=== PATIENT | female | born 1995 | race Two or more races ===

== ENCOUNTER 2019-05-09 09:55 | Emergency (ER) | payer SELFPAY ==
[2019-05-09 10:03] VITALS: BP 141/80
[2019-05-09] MEDS ORDERED: DIPH/PERTUSS(ACELL)/TETANUS VAC/PF 0.5 ML SYR (>=10YO) IM ONE (11:38)
--- NOTE | 2019-05-09 11:40 | ER Document Report ---
HPI - HPI Patient complains to provider of: Small enlarged lymph node on right posterior cervical chain, laceration fin Time Seen by Provider: 05/09/19 11:16 Onset: Other - This weekend Onset/Duration: Persistent Quality of pain: No pain Severity: None Pain Level: Denies Associated Symptoms: Other - Small superficial laceration to right second finger Exacerbated by: Movement Relieved by: Denies Similar symptoms previously: Yes Recently seen / treated by doctor: No - ROS ROS below otherwise negative: Yes - CONSTITUTIONAL Constitutional: DENIES: Fever, Chills - EENT EENT: REPORTS: Nasal Drainage-Purulent. DENIES: Sore Throat, Ear Pain, Nasal Drainage-Clear, Congestion, Eye problems Notes: Mild swelling and drainage to the right nare with mild lymphadenopathy on the right anterior cervical chain - CARDIOVASCULAR Cardiovascular: DENIES: Chest pain - RESPIRATORY Respiratory: DENIES: Trouble Breathing, Coughing - GASTROINTESTINAL Gastrointestinal: DENIES: Abdominal Pain, Nausea, Patient vomiting, Diarrhea, Constipation, Black / Bloody Stools - URINARY Urinary: DENIES: Dysuria, Urgency, Frequency - REPRODUCTIVE Reproductive: DENIES: :, Postmenopausal, Abnormal bleeding / discharge - MUSCULOSKELETAL Musculoskeletal: DENIES: Extremity pain, Back Pain, Neck Pain, Swelling - DERM Skin Color: Normal Skin Problems: Laceration - Superficial laceration to the right index finger Past Medical History - General Information source: Patient - Social History Smoking Status: Former Smoker Cigarette use (# per day): No Chew tobacco use (# tins/day): No Smoking Education Provided: No Frequency of alcohol use: Social Drug Abuse: None Lives with: Family Family History: None Patient has suicidal ideation: No Patient has homicidal ideation: No - Past Medical History Cardiac Medical History: Reports: None Pulmonary Medical History: Reports: None EENT Medical History: Reports: None Neurological Medical History: Reports: None Endocrine Medical History: Reports: None Renal/ Medical History: Reports: None Malignancy Medical History: Reports: None GI Medical History: Reports: None Musculoskeletal Medical History: Reports None Skin Medical History: Reports None Psychiatric Medical History: Reports: None Traumatic Medical History: Reports: None Infectious Medical History: Reports: None Surgical Hx: Negative Past Surgical History: Reports: None - Immunizations Immunizations up to date: Yes Hx Diphtheria, Pertussis, Tetanus Vaccination: Yes Vertical Provider Document - CONSTITUTIONAL Agree With Documented VS: Yes - INFECTION CONTROL TRAVEL OUTSIDE OF THE [place] IN LAST 30 DAYS: No - HEENT HEENT: Atraumatic Notes: Mild swelling and drainage to the right nasal mucosal - NECK Neck: Lymphadenopathy-Right - RESPIRATORY Respiratory: Breath Sounds Normal - CARDIOVASCULAR Cardiovascular: Regular Rate - GI/ABDOMEN Gastrointestinal: Abdomen Soft, Abdomen Non-Tender, No Organomegaly, Normal Bowel Sounds - MUSCULOSKELETAL/EXTREMETIES Musculoskeletal/Extremeties: MAEW, FROM, Tender - Right index finger - NEURO Level of Consciousness: Awake, Alert, Appropriate Motor/Sensory: No Motor Deficit, No Sensory Deficit, No Pronator Drift Deep Tendon Reflexes: 2+ - DERM Integumentary: Laceration - Superficial minor laceration to the end of the right index Course - Re-evaluation Re-evalutation: 05/09/19 20:59 Patient has no signs and symptoms of any acute respiratory illnesses. She does have a minor lymphadenopathy to the anterior cervical chain. She has a small superficial laceration to her finger that was from last night. It is more than 12 hours old when I examined her. I did inform the patient on need to clean the wound with soap water and apply bacitracin and Band-Aid but it was not able to be sutured this long after the initial injury. It was not gaping at this time. Patient was discharged home and instructed to follow-up with her primary doctor. - Vital Signs Vital signs: Temp Pulse Resp BP Pulse Ox 98.1 F 73 18 141/80 H 97 05/09/19 10:02 05/09/19 10:02 05/09/19 10:02 05/09/19 10:02 05/09/19 10:02 Discharge - Discharge Clinical Impression: Superficial laceration right 2nd finger, Lymphadenopathy right cervical chain, Viral URI Condition: Stable Disposition: HOME, SELF-CARE Instructions: Family Physicians / Practices Additional Instructions: Lymphadenopathy You have enlargement of lymph glands, called lymphadenopathy. Lymph glands filter tissue fluids. They help to fight infection. Most of the time, enlarged lymph glands are not serious. Lymph glands may react to a viral or bacterial infection by becoming swollen and painful. When the infection goes away, the glands shrink. Sometimes a lymph gland will remain enlarged for a long time after an infection. Occasionally, a lymph gland may be overwhelmed by infection and form an abscess. If an enlarged lymph gland has signs that are suspicious for tumor, the doctor will recommend a biopsy. A suspicious gland usually is NOT painful, grows very slowly, and is rock-hard to touch. See the doctor or return if there is increasing swelling and redness, high fever, difficulty breathing, or any other change for the worse. Upper Respiratory Illness You have a viral infection of the respiratory passages -- a "cold." This common infection causes nasal congestion, drainage, and often sore throat and cough. It is caused by a virus and is highly contagious. The disease usually lasts a week or more, though the worst symptoms are usually over in 3 or 4 days. There is no "cure" for the viral infection -- it must run its course. If there is a complication, such as bacterial infection in the nose, sinuses, middle ear, or bronchial tubes, antibiotics may be required, but antibiotics won't affect the virus. If you smoke, you should STOP!! Drink plenty of fluids. A humidifier may help. An expectorant medication or decongestant may make you more comfortable. Use acetaminophen or ibuprofen for fever or aches. See the doctor if fever persists over two or three days, if there is any significant worsening of your symptoms, or if you simply fail to improve as expected. NON-SUTURED LACERATION: Your laceration did not require suturing. Some lacerations cannot be sutured because of increased infection risk, while others simply don't need stitches because they are shallow or very short. Your injury should be protected while it heals. Usually complete healing takes 10 to 14 days. Keep the dressing clean and dry, and change it every day. If you notice increasing pain, redness, swelling, drainage, or tender lumps in the armpit or groin above the injury, infection may be present. You should call the doctor at once. SOAP CLEANSING: Gently wash the wound daily using a mild soap (like Ivory, Phisoderm, Neutrogena). Use warm water, rubbing gently until all debris, ooze, and crusting have been washed from the wound. Allow to dry briefly (about 10 minutes) after cleaning. Repeat this cleansing at least three times a day for the first two days and then once or twice a day. ANTIBIOTIC OINTMENT PROTECTION: Your wounds are such that dressing them is not practical or optional. After cleansing, you should apply a thin coating of antibiotic ointment (Bacitracin, not Neosporin) to the wounds at least three times daily. This lessens infection risk, and may decrease the amount of scarring. Use a q-tip or dull butter knife, not your finger, to apply this ointment. Any debris or ooze which builds up in the ointment should be gently rubbed off with a sterile gauze pad. Harder crusting may need to be gently scrubbed off with a clean wash cloth with soap and warm water, perhaps applying a warm, wet wash cloth to the wound for ten minutes first. Development of redness, severe itching, or blistering may mean allergy to the ointment. See the doctor. TETANUS IMMUNIZATION GIVEN: You have been given an immunization against tetanus. Please record this in your records. In general, a booster is needed only once every 10 years. The tetanus shot protects against tetanus or "lockjaw," which is a complication of certain wound infections (the tetanus shot cannot protect against the actual infection). The immunization site may become warm and red due to local reaction. If this occurs, apply warm compresses and take aspirin or ibuprofen to reduce inflammation and discomfort. Return for evaluation if the reaction becomes severe. FOLLOW-UP CARE: If you have been referred to a physician for follow-up care, call the physicians office for an appointment as you were instructed or within the next two days. If you experience worsening or a significant change in your symptoms, notify the physician immediately or return to the Emergency Department at any time for re-evaluation. Forms: Elevated Blood Pressure
== END 2019-05-09 11:52 | disposition home or self-care (01) ==
LOC: ER 09:55
DX: S61.210A Laceration without foreign body of right index finger without damage to nail, initial encounter (principal); W45.8XXA Other foreign body or object entering through skin, initial encounter; J06.9 Acute upper respiratory infection, unspecified; B97.89 Other viral agents as the cause of diseases classified elsewhere; R59.0 Localized enlarged lymph nodes; R09.89 Other specified symptoms and signs involving the circulatory and respiratory systems; Z87.891 Personal history of nicotine dependence
CPT/HCPCS: 90471; 90715; 99283

== ENCOUNTER → 2019-06-29 | Outpatient (CLI) | payer SELFPAY ==
--- NOTE | 2019-06-29 15:38 | RADIOLOGY REPORT (SQ) ---
EXAM DESCRIPTION: U/S [id number] TRNABD 1GES W/ODOP COMPLETED DATE/TIME: 06/29/2019 3:07 pm REASON FOR STUDY: Z34.01 ENCNTR FOR SUPRVSN OF NORMAL FIRST PREG, FIRST TRIMESTER Z34.01 ENCNTR FOR SUPRVSN OF NORMAL FIRST PREG, FIRST TRIMES COMPARISON: None. TECHNIQUE: Transvaginal static and realtime grayscale images acquired of the pelvis. Additional blessing cted spectral and color Doppler images recorded. All images stored on PACs. bHCG: Not available. CLINICAL DATES: 9 week 3 day. LIMITATIONS: None. FINDINGS: FETUS: Single Living intrauterine . ULTRASOUND EGA: 9 week 0 day. ULTRASOUND CARMEN: 02/01/2020. EFW: Not applicable less than 20 weeks. CRL: 2.32 cm. FHR: 182 beats per minute. SURVEY: There is irregularity of the abdominal wall with echogenic structures suggestive of gut herniation. AMNIOTIC FLUID: Adequate amount. PLACENTA: Not yet developed due to early gestation. SUBCHORIONIC BLEED: No. SIZE OF BLEED: Not applicable. UTERUS: No masses. No anomalies. CERVICAL LENGTH: 3.0 cm. Closed. RIGHT ADNEXA: Ovary not identified due to poor acoustical window. No adnexal free fluid. No adnexal masses. LEFT ADNEXA: Normal ovary with normal vascular flow. No adnexal free fluid. 2.5 cm corpus luteum cyst. FREE FLUID: None. OTHER: No other significant finding. IMPRESSION: LIVING INTRAUTERINE . EGA 9 WEEK 0 DAY. 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 THE PATIENT WILL NEED A FOLLOW-UP OBSTETRIC ULTRASOUND TO BRIANNA SUSHIL THAT THIS FINDING RESOLVES AND DOES NOT PERSIST. Trimester of : First trimester - 0 to 13 weeks. TECHNICAL DOCUMENTATION: JOB ID: [id number] [employer]- All Rights Reserved Reading location - IP/workstation name: [email or web address]
== END ==
LOC: RAD 14:23
PROVIDERS: ATTEND Nurse Practitioner Family
DX: Z34.01 Encounter for supervision of normal first pregnancy, first trimester (principal)
CPT/HCPCS: 76801

== ENCOUNTER → 2019-07-27 | Outpatient (CLI) | payer SELFPAY ==
--- NOTE | 2019-07-27 17:37 | RADIOLOGY REPORT (SQ) ---
EXAM DESCRIPTION: U/S [id number] TRNABD 1GES W/ODOP COMPLETED DATE/TIME: 07/27/2019 3:35 pm REASON FOR STUDY: Z34.01 ENCNTR FOR SUPRVSN OF NORMAL FIRST PREG, FIRST TRIMESTER Z34.01 ENCNTR FOR SUPRVSN OF NORMAL FIRST PREG, FIRST TRIMES COMPARISON: 06/29/2019 TECHNIQUE: Transabdominal static and realtime grayscale images acquired of the pelvis. Additional se lected spectral and color Doppler images recorded. All images stored on PACs. bHCG: Not applicable. CLINICAL DATES: 13 weeks 3 days LIMITATIONS: None. FINDINGS: FETUS: Single Living intrauterine . ULTRASOUND EGA: 13 weeks 4 days ULTRASOUND CARMEN: 01/28/2020 EFW: Not applicable. CRL: 7.5 cm. FHR: 152 beats per minute. SURVEY: Too early to assess. AMNIOTIC FLUID: Adequate amount. PLACENTA: Posterior. SUBCHORIONIC BLEED: No SIZE OF BLEED: Not applicable. UTERUS: No masses. No anomalies. CERVICAL LENGTH: 3.2 cm. Closed. RIGHT ADNEXA: Ovary not seen. No adnexal free fluid. No adnexal masses. LEFT ADNEXA: Ovary not seen. No adnexal free fluid. No adnexal masses. FREE FLUID: None. OTHER: No other significant finding. IMPRESSION: LIVING INTRAUTERINE . EGA 13 weeks 4 days. Trimester of : Second trimester - 13 weeks 1 day to 27 weeks 6 days. TECHNICAL DOCUMENTATION: JOB ID: [id number] [employer]- All Rights Reserved Reading location - IP/workstation name: [email or web address]
== END ==
LOC: RAD 14:56
PROVIDERS: ATTEND Midwife
DX: Z34.02 Encounter for supervision of normal first pregnancy, second trimester (principal)
CPT/HCPCS: 76801

== ENCOUNTER 2020-01-25 05:55 | Outpatient (CLI) | payer MEDICAID ==
[2020-01-25 06:35] LABS: APPEARANCE,URINE SLIGHTLY-CLOUDY; BILIRUBIN,URINE NEGATIVE (NEGATIVE); COLOR,URINE YELLOW; GLUCOSE, URINE NEGATIVE (NEGATIVE); KETONES,URINE NEGATIVE (NEGATIVE); LEUKOCYTE ESTERASE,URINE LARGE (NEGATIVE); NITRITE,URINE NEGATIVE (NEGATIVE); PROTEIN,URINE NEGATIVE (NEGATIVE); URINE SPECIFIC GRAVITY 1.014; UROBILINOGEN,URINE NEGATIVE mg/dL (<2.0)
[2020-01-25 06:55] LABS: URINE AMPHETAMINES SCREEN NEGATIVE; URINE BARBITURATES SCREEN NEGATIVE; URINE BENZODIAZEPINES SCREEN NEGATIVE; URINE COCAINE SCREEN NEGATIVE; URINE MARIJUANA (THC) SCREEN NEGATIVE; URINE METHADONE SCREEN NEGATIVE
[2020-01-25 06:59] LABS: URINE PHENCYCLIDINE SCREEN NEGATIVE
--- NOTE | 2020-01-25 07:56 | Non Stress Test Report ---
Non Stress Test Datetime Report Generated by CPN: 01/25/2020 07:56 DEMOGRAPHIC EGA NST: 39.3 INDICATION Indication for Study (NST) Other: Labor check MONITORING Monitor Explained: Monitor Explained; Test Explained; Patient Verbalized Understanding Time on Monitor: 01/25/2020 06:53 Time off Monitor: 01/25/2020 07:15 NST Duration: 22 NST INTERVENTIONS NST Interventions: PO Hydration; Reposition Patient Physician Notified NST: Dr. Franco BABY A: [id number] BABY A Movement : Present Contraction Frequency : occasional FHR Baseline : 140 Accelerations : 15X15 Decelerations : None Variability : Moderate 6-25bpm NST Review: Meets Criteria for Reactive NST NST Review and Verified By : JustinrtinRN NST Results: Reactive NST REPORT Report Trigger: Send Report
== END 2020-01-25 07:35 | disposition home or self-care (01) ==
LOC: LC 05:55
PROVIDERS: ATTEND Obstetrics & Gynecology Gynecology
DX: Z34.93 Encounter for supervision of normal pregnancy, unspecified, third trimester (principal)
CPT/HCPCS: 59025; 80307; 81005; 94760

== ENCOUNTER 2020-01-25 10:17 | Inpatient (IN) | payer MEDICAID ==
[2020-01-25] MEDS ORDERED: LIDOCAINE 1% INJ-PF (10 MG/ML) 30 ML SDV ONE (10:38)
[2020-01-25] MEDS ORDERED: OXYTOCIN/NORMAL SALINE 20 UNIT/1,000 ML RTUINJ ONE (10:38)
[2020-01-25] MEDS ORDERED: MISOPROSTOL 0.2 MG TABLET ONE (10:38)
[2020-01-25] MEDS ORDERED: OXYTOCIN 10 UNIT/ML VIAL ONE (10:38)
[2020-01-25] MEDS ORDERED: PENICILLIN G-K 5 MILLION UNIT VIAL ONE (10:38)
[2020-01-25] MEDS ORDERED: RINGERS SOLUTION,LACTATED 1,000 ML IV PRN (10:54)
[2020-01-25] MEDS ORDERED: PENICILLIN G POTASSIUM 5,000,000 UNIT in DEXTROSE 5%-WATER 100 ML IV ONE (10:54)
[2020-01-25] MEDS ORDERED: RINGERS SOLUTION,LACTATED 1,000 ML IV ONE (10:54)
[2020-01-25] MEDS ORDERED: FENTANYL/BUPIVACAINE/NS/PF 0 MCG/0 ML RTUINJ EPI ONE (11:24)
[2020-01-25] MEDS ORDERED: EPHEDRINE SULFATE INJ 50 MG/1 ML AMPULE ONE (11:24)
--- NOTE | 2020-01-25 11:24 | Admission Physical ---
Datetime Report Generated by CPN: 01/25/2020 11:24 CURRENT ADMISSION Chief Complaint: Uterine Contractions Admit Impression : Active Labor Admit Plan: Admit to Unit; Initiate Labor Protocol Admit Plan- Other: Start PCN for +GBS status ALLERGIES Medication Allergies: No Known Allergies (01/25/2020) OBSTETRICAL HISTORY EDC: 01/29/2020 00:00 : 1 Para: 0 Term: 0 : 0 SAB: 0 IAB: 0 Ectopic: 0 Livin Cesareans: 0 VBACs: 0 Multiple Births: 0 PHYSICAL EXAM General: Normal HEENT: Normal Neurologic: Normal Thyroid: Normal Heart: Normal Lungs: Normal Breast: Normal Back: Normal Abdomen: Normal Genitourinary Exam: Normal Extremities: Normal DTRs: Normal Pelvic Type: Adequate Vital Signs: Reviewed VAGINAL EXAM Contraction Comments: q2-3 FETUS A EGA: 39.3 Monitoring: External US FHR- Baseline: 140 Variability: Moderate 6-25bpm Accelerations: 15X15 Decelerations: None Admit Comment: presents from home c/o contractions, +GBS. VE per RN pt is 5-6 cm. Will plan to admit and start PCN. Pt desires epidural. Attending MD is Dr Luciano INFORMED CONSENT Assignment: Ezra Luciano MD Signature: with User ID: [email or web address] : with User ID: [email or web address]
[2020-01-25] MEDS ORDERED: BUPIVACAINE HCL 0.25 % INJ/PF (2.5 MG/1 ML) 30 ML VIAL ONE (11:25)
[2020-01-25 11:50] LABS: ABSOLUTE BASOPHILS # (AUTO) 0.1 10^3/uL (0.0-0.2); ABSOLUTE LYMPHOCYTES (AUTO) 0.8 10^3/uL (0.5-4.7); ABSOLUTE MONOCYTES (AUTO) 0.4 10^3/uL (0.1-1.4); ABSOLUTE NEUT (AUTO) 11.7 10^3/uL (1.7-8.2); BASOPHILS % (AUTO) 0.4 % (0-2); HEMATOCRIT 35.3 % (36.0-47.0); HEMOGLOBIN 11.7 g/dL (12.0-15.5); LYMPHOCYTES % (AUTO) 6.4 % (13-45); MEAN CORPUSCULAR HEMOGLOBIN 29.3 pg (27.0-33.4); MEAN CORPUSCULAR HGB CONC 33.1 g/dL (32.0-36.0); MEAN CORPUSCULAR VOLUME 88 fl (80-97); MONOCYTES % (AUTO) 3.2 % (3-13); PLATELET COUNT 240 10^3/uL (150-450); RED BLOOD COUNT 3.99 10^6/uL (3.72-5.28); RED CELL DISTRIBUTION WIDTH 14.7 % (11.5-14.0); TOTAL CELLS COUNTED % (AUTO) 100 %
[2020-01-25] MEDS ORDERED: LIDOCAINE 2% JELLY 5 ML TUBE ONE (11:56)
--- NOTE | 2020-01-25 12:31 | Warning Signs in Babies ---
VOD Warning Signs Datetime Report Generated by [facility]: 01/25/2020 12:31 VOD#608 -Warning Signs in Babies: Viewed with Parent(s)/Family (01/25/2020 06:08:Basim Castaneda RN)
--- NOTE | 2020-01-25 12:32 | Warning Signs in Babies ---
VOD Warning Signs Datetime Report Generated by [facility]: 01/25/2020 12:32 VOD#[id number] -Warning Signs in Babies: Viewed with Parent(s)/Family (01/25/2020 12:31:Basim Castaneda RN)
[2020-01-25] MEDS ORDERED: DIBUCAINE 1% OINTMENT 28 GM TP PRN (12:36)
[2020-01-25] MEDS ORDERED: BENZOCAINE/MENTHOL AEROSOL SPRAY 56 ML TOP PRN (12:36)
[2020-01-25] MEDS ORDERED: ZOLPIDEM TARTRATE 5 MG TABLET PO PRN (12:36)
[2020-01-25] MEDS ORDERED: MEASLES,MUMPS&RUBELLA VACC/PF 0.5 ML VIAL SUBCUT PRN (12:36)
[2020-01-25] MEDS ORDERED: OXYTOCIN/NORMAL SALINE 20 UNIT/1,000 ML RTUINJ IV PRN (12:36)
[2020-01-25] MEDS ORDERED: ACETAMINOPHEN WITH CODEINE #3 TABLET PO PRN (12:36)
[2020-01-25] MEDS ORDERED: DIPH/PERTUSS(ACELL)/TETANUS VAC/PF 0.5 ML SYR (>=10YO) IM PRN (12:36)
[2020-01-25] MEDS ORDERED: IBUPROFEN 800 MG TABLET ONE (12:44)
[2020-01-25] MEDS: IBUPROFEN 800 MG TABLET PO SCH ×2 (12:51→22:13)
[2020-01-25] MEDS ORDERED: PENICILLIN G POTASSIUM 2,500,000 UNIT in DEXTROSE 5%-WATER 50 ML IV SCH (15:00)
--- NOTE | 2020-01-25 15:02 | Delivery Summary ---
Del Sum A-C Datetime Report Generated by CPN: 01/25/2020 15:02 DELIVERY PERSONNEL DELIVERY PERSONNEL: [id number] Delivery Doctor:: Janine Frank CNM Nurse City Clerk Certified:: Janine Frank CNM Labor and Delivery Nurse:: Basim Castaneda RNranch helper Nurse:: ROSETTE Higuera MATERNAL INFORMATION Delivery Anesthesia: Local Medications After Delivery: Pitocin Bolus-Please Comment Meds After Delivery Comment: Pitocin 20 units in 1000 ml nss open for bolus Delivery QBL: 150 Maternal Complications: None LABOR SUMMARY EDC: 01/29/2020 00:00 No. Babies in Womb: 1 Attempted: No Labor Anesthesia: None LABOR INFORMATION Reason for Induction: Not Applicable Onset of Labor: 01/25/2020 07:30 Complete Dilatation: 01/25/2020 11:49 Oxytocin: N/A Group B Beta Strep: positive Antibiotics # of Doses: 1 Antibiotics Time of Last Dose: 1047 Name of Antibiotic Given: Penicillin Steroids Given: None Reason Steroids Not Administered: Not Applicable MEMBRANES Membranes Rupture Method: Spontaneous Rupture of Membranes: 01/25/2020 11:48 Length of Rupture (hr): 0.37 Amniotic Fluid Color: Clear Amniotic Fluid Amount: Scant Amniotic Fluid Odor: Normal STAGES OF LABOR Stage 1 hr: 4 Stage 1 min: 19 Stage 2 hr: 0 Stage 2 min: 21 Stage 3 hr: 0 Stage 3 min: 3 Total Time in Labor hr: 4 Total Time in Labor min: 43 VAGINAL DELIVERY Episiotomy: None Laceration #1: Periurethral Laceration Extension #1: First Degree Other Laceration: right periurethral and right sidewall Sponge Count Correct: Yes Sharps Count Correct: Yes CSECTION DELIVERY Primary Indication: N/A Secondary Indication: N/A CSection Incidence: N/A Labor: N/A Elective: N/A CSection Incision: N/A BABY A INFORMATION Infant Delivery Date/Time: 01/25/2020 12:10 Method of Delivery: Vaginal Nurse Controlled Delivery: No Born in Route : No : N/A Forceps: N/A Vacuum Extraction: N/A Shoulder Dystocia : No PRESENTATION/POSITION BABY A Presentation: Cephalic Cephalic Presentation: Vertex Vertex Position: Right Occipital Anterior Breech Presentation: N/A PLACENTA INFORMATION BABY A Placenta Delivery Time : 01/25/2020 12:13 Placenta Method of Delivery: Spontaneous Placenta Status: Delivered SCORES BABY A Heart Rate 1 min: >100 bpm Resp Effort 1 min: Good Cry Reflex Irritability 1 min: Cough or Sneeze or Pulls Away Muscle Tone 1 min: Active Motion Color 1 min: Body [place], Extremities Blue Resuscitation Effort 1 min: Tactile Stimulation SCORE 1 MIN: 9 Heart Rate 5 min: >100 bpm Resp Effort 5 min: Good Cry Reflex Irritability 5 min: Cough or Sneeze or Pulls Away Muscle Tone 5 min: Active Motion Color 5 min: Body [place], Extremities Blue Resuscitation Effort 5 min: N/A SCORE 5 MIN: 9 Resuscitation Effort 10 min: N/A INFORMATION BABY A Gestational Age at Delivery: 39.3 Gestational Status: Full Term- 39- 40.6 Weeks Infant Outcome : Liveborn Condition : Stable Infant Sex: Female IDENTIFICATION BABY A Infant Verification Date/Time: 01/25/2020 12:25 ID Band Number: [id number] Mother's Name Verified: Yes RN Verifying : SCamp,RN Additional Verifying Personnel: Justinrtin,RN WEIGHT/LENGTH BABY A Birthweight (gm): 3070 Weight (lb): 6 Weight (oz): 12 Length (in): 20.00 Length (cm): 50.80 CORD INFORMATION BABY A No. Cord Vessels: 3 Nuchal Cord : Around Neck x1, Loose Cord Blood Taken: Yes-For Eval (Mom's Blood Type - or O+) Infant Suction: None ASSESSMENT BABY A Infant Complications: None Physical Findings at Delivery: Within Normal Limits Respirations: Appears Normal Skin to Skin: Yes Skin to Skin Time (min): 60 Conveyor Installer/ALS Called : No Care By: Karolina Castaneda RN Transferred To: Remains with Mother BABY B INFORMATION : N/A
[2020-01-25] MEDS: FERROUS SULFATE 325 MG TABLET PO SCH (17:33)
[2020-01-25] MEDS: DOCUSATE SODIUM 100 MG CAPSULE PO SCH (17:33)
[2020-01-26] MEDS: IBUPROFEN 800 MG TABLET PO SCH ×3 (05:15→21:38)
[2020-01-26 06:34] LABS: HEMATOCRIT 29.6 % (36.0-47.0); MEAN CORPUSCULAR HEMOGLOBIN 29.8 pg (27.0-33.4); MEAN CORPUSCULAR HGB CONC 33.8 g/dL (32.0-36.0); MEAN CORPUSCULAR VOLUME 88 fl (80-97); PLATELET COUNT 200 10^3/uL (150-450); RED BLOOD COUNT 3.36 10^6/uL (3.72-5.28); RED CELL DISTRIBUTION WIDTH 14.7 % (11.5-14.0); WHITE BLOOD COUNT 15.3 10^3/uL (4.0-10.5)
[2020-01-26] MEDS: DOCUSATE SODIUM 100 MG CAPSULE PO SCH ×2 (10:30→17:45)
[2020-01-26] MEDS: PRENATAL VITAMIN W DHA CAPSULE PO SCH (10:30)
[2020-01-26] MEDS: SENNOSIDES/DOCUSATE 8.6-50 MG 1 EACH TABLET PO SCH (10:30)
[2020-01-26] MEDS: FERROUS SULFATE 325 MG TABLET PO SCH ×2 (10:30→17:45)
--- NOTE | 2020-01-26 11:07 | PDOC PROGRESS REPORT ---
Subjective-OB Progress Note for:: 01/26/20 - PPD #1, doing well, breast feeding , no complaints, O+, Rubella Immune Physical Exam (OB) Vital Signs: Temp Pulse Resp BP Pulse Ox 98.1 F 72 18 143/71 H 99 01/26/20 04:09 01/26/20 04:09 01/26/20 04:09 01/26/20 04:09 01/26/20 04:09 Intake & Output 01/25/20 01/26/20 01/27/20 06:59 06:59 06:59 Intake Total 2200 240 Balance 2200 240 Weight 93 kg - General General Appearance: Appears well, Alert - PIH/Pre-Eclampsia DTR's: 2 + Clonus: Negative Headache: Absent Epigastric Pain: No Visual Changes: No - Lochia Lochia Amount: Small 10-25 ml Lochia Color: Rubra/Red - Abdomen Description: Soft Hernia Present: No Fundal Description: Firm, Midline Fundal Height: u/u - u/2 - Respiratory Respiratory Status: No respiratory distress - Abdominal Distension: No distension - Genitourinary Genitourinary Note: voiding - Neurological Cognition: Normal Orientation: AAOx4 Objective-Diagnostic Laboratory: 01/26/20 06:21 01/25/20 01/25/20 01/26/20 11:41 11:41 06:21 WBC 13.0 H 15.3 H RBC 3.99 3.36 L Hgb 11.7 L 10.0 L Hct 35.3 L 29.6 L MCV 88 88 MCH 29.3 29.8 MCHC 33.1 33.8 RDW 14.7 H 14.7 H Plt Count 240 200 Seg Neutrophils % 90.0 H Blood Type O POSITIVE Antibody Screen NEGATIVE Assessment and Plan(PN) - Assessment and Plan (1) Labor, precipitous, delivered Is this a current diagnosis for this admission?: Yes (2) (normal spontaneous vaginal delivery) Is this a current diagnosis for this admission?: Yes (3) Positive GBS test Is this a current diagnosis for this admission?: Yes Plan:: Routine PP orders, ambulation encouraged - Time Spent with Patient Time with patient: Less than 15 minutes Medications reviewed and adjusted accordingly: Yes - Disposition Anticipated Discharge: Home Within: within 24 hours
[2020-01-27] MEDS: IBUPROFEN 800 MG TABLET PO SCH (05:31)
[2020-01-27] MEDS: DOCUSATE SODIUM 100 MG CAPSULE PO SCH (09:54)
[2020-01-27] MEDS: FERROUS SULFATE 325 MG TABLET PO SCH (09:54)
[2020-01-27] MEDS: PRENATAL VITAMIN W DHA CAPSULE PO SCH (09:54)
[2020-01-27] MEDS: SENNOSIDES/DOCUSATE 8.6-50 MG 1 EACH TABLET PO SCH (09:54)
--- NOTE | 2020-01-27 10:59 | PDOC DISCHARGE SUMMARY ---
Impression - Admit/DC Date/PCP Admission Date/Primary Care Provider: 01/25/20 10:37 NENA SNYDER MD Discharge Date: 01/27/20 - PP Day #2, doing well, no complaints, brastfeeding, O+, Rubella Immune - Discharge Diagnosis (1) Labor, precipitous, delivered Is this a current diagnosis for this admission?: Yes (2) (normal spontaneous vaginal delivery) Is this a current diagnosis for this admission?: Yes (3) Positive GBS test Is this a current diagnosis for this admission?: Yes - Additional Information Resuscitation Status: Full Code Discharge Diet: As Tolerated, Regular Discharge Activity: Activity As Tolerated, No Lifting Over 10 Pounds, Pelvic Rest Referrals: [facility] [Provider Group] Prescriptions: Ibuprofen [Motrin 800 mg Tablet] 800 mg PO Q8 #60 tablet Home Medications: Prenat 115/Iron Fum/Folic/Dss [ 19 Tablet] 1 each PO DAILY 01/25/20 Ibuprofen [Motrin 800 mg Tablet] 800 mg PO Q8 #60 tablet 01/27/20 HPI Reason(s) for Admission: Onset of Labor Procedures: Ultrasound Intrapartum Procedure(s): Spontaneous Vaginal Delivery Complication(s): Laceration-Periurethral Laceration-Degree: 1st Hospital Course Hospital Course: routine Results Laboratory Results: WBC 15.3 10^3/uL (4.0-10.5) H 01/26/20 06:21 RBC 3.36 10^6/uL (3.72-5.28) L 01/26/20 06:21 Hgb 10.0 g/dL (12.0-15.5) L 01/26/20 06:21 Hct 29.6 % (36.0-47.0) L 01/26/20 06:21 MCV 88 fl (80-97) 01/26/20 06:21 MCH 29.8 pg (27.0-33.4) 01/26/20 06:21 MCHC 33.8 g/dL (32.0-36.0) 01/26/20 06:21 RDW 14.7 % (11.5-14.0) H 01/26/20 06:21 Plt Count 200 10^3/uL (150-450) 01/26/20 06:21 Lymph % (Auto) 6.4 % (13-45) L 01/25/20 11:41 [place] % (Auto) 3.2 % (3-13) 01/25/20 11:41 Eos % (Auto) 0.0 % (0-6) 01/25/20 11:41 Baso % (Auto) 0.4 % (0-2) 01/25/20 11:41 Absolute Neuts (auto) 11.7 10^3/uL (1.7-8.2) H 01/25/20 11:41 Absolute Lymphs (auto) 0.8 10^3/uL (0.5-4.7) 01/25/20 11:41 Absolute Monos (auto) 0.4 10^3/uL (0.1-1.4) 01/25/20 11:41 Absolute Eos (auto) 0.0 10^3/uL (0.0-0.6) 01/25/20 11:41 Absolute Basos (auto) 0.1 10^3/uL (0.0-0.2) 01/25/20 11:41 Seg Neutrophils % 90.0 % (42-78) H 01/25/20 11:41 Blood Type O POSITIVE 01/25/20 11:41 Antibody Screen NEGATIVE 01/25/20 11:41 Plan Plan of Treatment: d/c home, follow up with [facility] in 4 wks Time Spent: Less than 30 Minutes
[2020-01-27 11:27] VITALS: BP 125/71
== END 2020-01-27 12:50 | disposition home or self-care (01) | DRG 806 ==
LOC: LC 10:17 → LR 10:37 → 2S 15:16
PROVIDERS: ADMIT Obstetrics & Gynecology; ATTEND Obstetrics & Gynecology
PROC: 10E0XZZ Delivery of Products of Conception, External Approach (ICD-10-PCS; principal; 2020-01-25)
PROC: 0UQMXZZ Repair Vulva, External Approach (ICD-10-PCS; 2020-01-25)
PROC: 0UQGXZZ Repair Vagina, External Approach (ICD-10-PCS; 2020-01-25)
DX: O62.3 Precipitate labor (principal); O71.4 Obstetric high vaginal laceration alone; Z37.0 Single live birth; O99.824 Streptococcus B carrier state complicating childbirth; O69.81X0 Labor and delivery complicated by cord around neck, without compression, not applicable or unspecified; O71.82 Other specified trauma to perineum and vulva; Z3A.39 39 weeks gestation of pregnancy
CPT/HCPCS: 36415; 85025; 85027; 86592; 86850; 86900; 86901; 94760; J2540; J2590; J3010; J3490; J7060